=== PATIENT | female | born 1995 | race Caucasian/White ===

== ENCOUNTER 2024-07-14 15:58 | Emergency (ER) | payer OTHER ==
[~2024-07-14] VITALS: Ht 167.6 cm; Wt 95.3 kg
[2024-07-14 16:36] LABS: APPEARANCE,URINE CLEAR (CLEAR); BILIRUBIN,URINE NEGATIVE (NEGATIVE); BLOOD, URINE 3+ Ery/uL (NEGATIVE); COLOR,URINE YELLOW (YELLOW); KETONES,URINE NEGATIVE (NEGATIVE); LEUKOCYTE ESTERASE ,URINE NEGATIVE (NEGATIVE); NITRITE, URINE NEGATIVE (NEGATIVE); PH,URINE 7.5 (5.0-8.0); PROTEIN,URINE 1+ mg/dl (NEGATIVE); UGLUCOSE NEGATIVE (NEGATIVE)
[2024-07-14 16:54] LABS: PREGNANCY TEST URINE QUAL NEGATIVE (NEGATIVE)
[2024-07-14 16:56] LABS: BASOPHILS # (AUTO) 0.1 K/uL (0.0-0.2); BASOPHILS % (AUTO) 0.3 % (0.0-2.0); EOSINOPHILS # (AUTO) 0.2 K/uL (0.0-0.7); EOSINOPHILS % (AUTO) 1.2 % (0.0-6.0); HEMATOCRIT 50 % (33-45); HEMOGLOBIN 16.5 g/dL (11.5-14.8); LYMPHOCYTES % (AUTO) 12.6 % (20.0-44.0); MEAN CORPUSCULAR HEMOGLOBIN 30 PG (26.0-33.0); MEAN CORPUSCULAR HGB CONC 33 g/dl (31.0-36.0); MEAN CORPUSCULAR VOLUME 90 fL (82-100); MONOCYTES # (AUTO) 0.8 K/uL (0.1-1.30); MONOCYTES % (AUTO) 4.9 % (2.0-12.0); NEUTROPHILS # (AUTO) 12.7 K/uL (1.8-8.9); PLATELET COUNT (AUTO) 379 K/uL (150-450); RED BLOOD CELL COUNT(AUTO) 5.58 MIL/uL (4.0-5.2); WHITE BLOOD COUNT (AUTO) 15.6 K/uL (4.3-11.0)
[2024-07-14 17:04] LABS: CALCIUM, SERUM 9.9 mg/dL (8.5-10.1); CREATININE 1.1 mg/dL (0.6-1.3)
[2024-07-14 17:30] LABS: RBC,URINE 51-80 /HPF (0-2)
[2024-07-14 17:31] LABS: ADD URINE CULTURE YES; BACTERIA,URINE 2+ /HPF (None Seen); WBC,URINE 0-2 /HPF (0-3)
[2024-07-14] MEDS ORDERED: KETOROLAC TROMETHAMINE 15 MG/ML VIAL ONE (17:37)
[2024-07-14] MEDS: KETOROLAC TROMETHAMINE 15 MG/ML VIAL IM ONE (17:41)
[2024-07-14 20:13] VITALS: BP 140/85; TEMP 97.8; O2SAT 99
== END 2024-07-14 20:14 | disposition home or self-care (01) ==
LOC: ER 16:01
DX: N20.0 Calculus of kidney (principal)
CPT/HCPCS: 99285; 74176; 96372; 85025; 80048; 84703; 81001; 36415; J1885